=== PATIENT | male | born 1995 | race Caucasian/White ===

== ENCOUNTER 2022-05-03 22:35 | Emergency (ER) | payer OTHER ==
[~2022-05-03] VITALS: Ht 185.4 cm; Wt 88.6 kg
[~2022-05-03 22:35] MED LIST: ALBUTEROL0.09 MG/A4 IH; CLARITIN; FLEXERIL10 MG PO; LORTAB 5/500 501 TAB PO; MOTRIN600 MG PO; SINGULAIR; ZYRTEC
[2022-05-03 22:47] VITALS: BP 155/88; TEMP 98.4
[2022-05-03 23:16] VITALS: PULSE 58
[2022-05-03 23:36] LABS: HIV 1/2 Antibodies Non-Reactive; HIV-1p24 Antigen Non-Reactive
[2022-05-04 12:55] LABS: HEPATITIS B SURFACE ANTIGEN Negative (Negative); HEPATITIS C VIRUS ANTIBODY Negative (Negative)
== END 2022-05-03 23:18 | disposition home or self-care (01) ==
LOC: COL.ER 22:35
PROVIDERS: Physician Assistant
DX: S61.032A Puncture wound without foreign body of left thumb without damage to nail, initial encounter (principal); W46.1XXA Contact with contaminated hypodermic needle, initial encounter